=== PATIENT | male | born 1935 | race Caucasian/White ===

== ENCOUNTER → 2017-01-18 | Outpatient (CLI) | payer MEDICARE | END | disposition home or self-care (01) | LOC: PCVCCLINIC 10:41 | PROVIDERS: ATTEND Internal Medicine Cardiovascular Disease | DX: I48.91 Unspecified atrial fibrillation (principal); E78.00 Pure hypercholesterolemia, unspecified; I10 Essential (primary) hypertension; E11.9 Type 2 diabetes mellitus without complications; I25.10 Atherosclerotic heart disease of native coronary artery without angina pectoris; Z95.1 Presence of aortocoronary bypass graft | CPT/HCPCS: 80061; 93005; G0463 ==

== ENCOUNTER → 2017-09-13 | Outpatient (CLI) | payer MEDICARE | END | disposition home or self-care (01) | LOC: PCVCCLINIC 12:01 | PROVIDERS: ATTEND Internal Medicine Cardiovascular Disease | DX: I25.10 Atherosclerotic heart disease of native coronary artery without angina pectoris (principal); I10 Essential (primary) hypertension; I48.2 Chronic atrial fibrillation; E03.9 Hypothyroidism, unspecified; E11.9 Type 2 diabetes mellitus without complications; E78.00 Pure hypercholesterolemia, unspecified; R94.31 Abnormal electrocardiogram [ECG] [EKG]; Z95.1 Presence of aortocoronary bypass graft; Z79.82 Long term (current) use of aspirin; Z79.899 Other long term (current) drug therapy | CPT/HCPCS: 80061; 93005; G0463 ==

== ENCOUNTER → 2018-03-15 | Outpatient (CLI) | payer MEDICARE | END | disposition home or self-care (01) | LOC: PCVCCLINIC 15:00 | DX: I25.10 Atherosclerotic heart disease of native coronary artery without angina pectoris (principal); I48.2 Chronic atrial fibrillation; I10 Essential (primary) hypertension; E11.9 Type 2 diabetes mellitus without complications; Z95.1 Presence of aortocoronary bypass graft; Z95.0 Presence of cardiac pacemaker | CPT/HCPCS: 80061; 93005; 93279; G0463 ==

== ENCOUNTER → 2018-09-20 | Outpatient (CLI) | payer MEDICARE ==
[~2018-09-20] MED LIST: REGADENOSON 0.4 MG/5 ML DISP.SYRIN. IV ONE
--- NOTE | 2018-09-25 10:36 | PCVCIMAG ---
APPROVED REPORT Imaging Protocol: Rest Tc-99m/Stress Tc-99m 1 day Study performed: 09/20/2018 10:18:31 Indication: CAD , Atrial Fibrillation, PPM Patient Location: Out-Patient Stress Nurse: Arlen Gibson RN LA Tech:Valentina Everett [facility] Ht: 5 ft 10 in Wt: 204 lbs BSA: 2.10 m2 HR: 60 bpm BP: 143/63 mmHg BMI: 29.2 Rhythm: Atrial Fibrillation, Paced Medical History Medical History: HTN, Hyperlipidemia, CAD, Diabetes, Atrial Fibrillation Medications: Atorvastatin, CoQ10, Pradaxa, Synthroid, Losartan Allergies: Horse serum Cardiac Risk Factors: Age Previous Cardiac Procedures: CABG 2004, PPM Pretest Chest Pain Characteristics: No chest pain Exercise History: Sedentary Resting Data Rest SPECT myocardial perfusion imaging was performed in supine position 45 minutes following the intravenous injection of 10.5 mCi of Tc-99m Sestamibi. Time of rest injection: 0930 Administration Route: IV Administration Site: Right AC Pharmacologic Stress Pharmacologic stress test was performed by injecting Regadenoson 0.4 mg IV push over 10-15 seconds immediately followed by the intravenous injection of 33 mCi of Tc-99m Sestamibi. Time of stress injection: 1100 Date: 09/20/2018 Administration Route: IV Administration Site: Right AC Gated Stress SPECT was performed 45 minutes after stress injection. The images were gated to evaluate regional wall motion and calculate left ventricular ejection fraction. Stress Test Details Stress Test: Pharmacologic stress testing performed using 0.4 mg of regadenoson per 5 mL given IV over 10 seconds. Reason for pharmacologic stress test: physical limitation, Atrial Fibrillation, Paced. HRMax Heart Rate (APMHR): 139 bpm Resting HR: 60 bpmTarget HR (85% APMHR): 118 bpm Max HR Achieved: 79 bpm % of APMHR: 56 Recovery HR: 67 bpm BP Resting BP: 143/63 mmHg Recovery BP: 134/65 mmHg ECG Resting ECG: Atrial Fibrillation, Paced Stress ECG: Atrial Fibrillation, Paced Recovery ECG: Atrial Fibrillation, Paced, , Clear, Sinus Rhythm Clinical Reason for Termination: Completed protocol Stress Symptoms: Headache Exercise duration: 0 min 55 sec Symptoms resolved during recovery. Stress ECG Conclusion non diagnostic Study Quality Study: Good Study Data Post stress, the left ventricular ejection was 35%.. SSS: 10 SRS: 4 SDS: 6 TID = 0.82. 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 Post stress, the left ventricular ejection was 35%. No change since prior study dated December 2015. Interpreted by: Zeke Prieto MD Electronically Approved: 09/20/2018 17:36:21 <Conclusion> non diagnostic
== END | disposition home or self-care (01) ==
LOC: PCVCIMAG 09:28
PROVIDERS: ATTEND Internal Medicine Cardiovascular Disease
DX: I25.10 Atherosclerotic heart disease of native coronary artery without angina pectoris (principal); I48.2 Chronic atrial fibrillation; I10 Essential (primary) hypertension; E11.9 Type 2 diabetes mellitus without complications; Z95.1 Presence of aortocoronary bypass graft; Z95.0 Presence of cardiac pacemaker
CPT/HCPCS: 78452; 93017; A9500; J2785

== ENCOUNTER → 2019-01-08 | Outpatient (CLI) | payer MEDICARE | END | disposition home or self-care (01) | LOC: PCVCCLINIC 14:27 | PROVIDERS: ATTEND Internal Medicine Cardiovascular Disease | DX: I25.10 Atherosclerotic heart disease of native coronary artery without angina pectoris (principal); E78.00 Pure hypercholesterolemia, unspecified; I48.91 Unspecified atrial fibrillation; I10 Essential (primary) hypertension; E03.9 Hypothyroidism, unspecified; Z79.899 Other long term (current) drug therapy; Z88.8 Allergy status to other drugs, medicaments and biological substances; Z87.891 Personal history of nicotine dependence | CPT/HCPCS: 36415; 80061; 93279; G0463 ==

== ENCOUNTER → 2019-09-12 | Outpatient (CLI) | payer MEDICARE ==
--- NOTE | 2019-09-12 16:43 | PCVCIMAG ---
APPROVED REPORT Study performed: 09/12/2019 15:08:16 EXAM: Comprehensive 2D, Doppler, and color-flow Echocardiogram Patient Location: Echo lab Status: routine BSA: 2.10 HR: 60 bpmBP: 128/64 mmHg Rhythm: Pacemaker Other Information Study Quality: Adequate Indications Atrial Fibrillation Pacemaker CAD CABG 2D Dimensions IVSd: 12.77 (7-11mm) LVDd: 49.50 mm PWd: 11.92 (7-11mm)Ascending Ao: 29.92 (22-36mm) LVDs: 38.83 (25-40mm) Left Atrium: 42.83 (27-40mm) Aortic Root: 31.35 mm LV Single Plane 4CH: 47.79 % LV Single Plane 2CH: 52.27 % Biplane EF: 50.5 % Volumes Left Atrial Volume (Systole) Single Plane 4CH: 119.52 mLSingle Plane 2CH: 122.15 mL LA ESV Index: 62.00 mL/m2 Aortic Valve AoV Peak Jarvis.: 1.33 m/s AO Peak Gr.: 7.08 mmHgLVOT Max P.21 mmHg LVOT Max V: 0.74 m/s Pulmonary Valve PV Peak Jarvis.: 0.84 m/sPV Peak Gr.: 2.84 mmHg Tricuspid Valve TR Peak Jarvis.: 2.75 m/s TR Peak Gr.: 30.23 mmHg Left Ventricle The left ventricle is normal size. Inferior and inferolateral hypokinesis consistent with prior testing and known coronary anatomy. Mild concentric left ventricular hypertrophy. Left ventricular systolic function is within lower limits of normal. LVEF is 50%. This study is not technically sufficient to allow evaluation of the LV diastolic function. Right Ventricle The right ventricle is normal size. The right ventricular systolic function is normal. Atria Left atrium is severely dilated. Right atrium is severely dilated. Aortic Valve The aortic valve is normal in structure. No aortic regurgitation is present. There is no aortic valvular stenosis. Mitral Valve The mitral valve is normal in structure. Mild mitral regurgitation. No evidence of mitral valve stenosis. Tricuspid Valve The tricuspid valve is normal in structure. Moderate tricuspid regurgitation with PAP of 40 mmHg. Pulmonic Valve The pulmonary valve is normal in structure. Mild to moderate pulmonic regurgitation. Great Vessels The aortic root is normal in size. IVC is normal in size and collapses >50% with inspiration. Pericardium There is no pericardial effusion. There is no pleural effusion. <Conclusion> The left ventricle is normal size. Mild concentric left ventricular hypertrophy. LVEF is 50%. Inferior and inferolateral hypokinesis consistent with prior testing and known coronary anatomy. The right ventricle is normal size. Left atrium is severely dilated. Right atrium is severely dilated. The aortic valve is normal in structure. There is no aortic valvular stenosis. Mild mitral regurgitation. Moderate tricuspid regurgitation with PAP of 40 mmHg. The aortic root is normal in size. There is no pericardial effusion.
== END | disposition home or self-care (01) ==
LOC: PCVCIMAG 15:08
PROVIDERS: ATTEND Internal Medicine Cardiovascular Disease
DX: I08.1 Rheumatic disorders of both mitral and tricuspid valves (principal); I48.91 Unspecified atrial fibrillation; I25.10 Atherosclerotic heart disease of native coronary artery without angina pectoris; E11.9 Type 2 diabetes mellitus without complications; E78.00 Pure hypercholesterolemia, unspecified; R00.1 Bradycardia, unspecified; C61 Malignant neoplasm of prostate; I10 Essential (primary) hypertension; M19.90 Unspecified osteoarthritis, unspecified site; E03.9 Hypothyroidism, unspecified; Z95.1 Presence of aortocoronary bypass graft; Z95.0 Presence of cardiac pacemaker
CPT/HCPCS: 93306